=== PATIENT | female | born 1985 | race African-American/Black ===

== ENCOUNTER 2017-05-23 22:32 | Inpatient (IN) | payer BC ==
[2017-05-23] MEDS ORDERED: METHYLERGONOVINE 0.2 MG INJ IM (23:00)
[2017-05-23] MEDS ORDERED: MISOPROSTOL 200 MCG TAB PR (23:00)
[2017-05-23] MEDS ORDERED: OXYTOCIN 30 UNITS/LR 500 ML IV ×3 (23:00)
[2017-05-23] MEDS ORDERED: CARBOPROST 250 MCG INJ IM (23:00)
[2017-05-23] MEDS ORDERED: LIDOCAINE 1% (MPF) 30 ML INJ INJ (23:00)
[2017-05-23] MEDS ORDERED: IBUPROFEN 600 MG TAB PO (23:00)
[2017-05-24] MEDS: LACTATED RINGER'S 1,000 ML IV ×4 (00:02→22:41)
[2017-05-24 00:36] LABS: ADD MAN DIFF? NO
[2017-05-24 00:39] LABS: WHITE BLOOD COUNT 7.6 10^3/ul (4.8-10.8)
[2017-05-24 00:39] LABS: BASOPHILS % 0.1 % (0.0-2.0); EOSINOPHILS % 0.5 % (0.0-7.0); HEMATOCRIT 35.3 % (37.0-47.0); HEMOGLOBIN 12.2 g/dl (12.0-16.0); LYMPHOCYTES # 1.5 10^3/ul (0.8-2.9); LYMPHOCYTES % 20.4 % (15.0-51.0); MEAN CORPUSCULAR HEMOGLOBIN 27.8 pg (29.0-33.0); MEAN CORPUSCULAR HGB CONC 34.6 g/dl (32.0-37.0); MEAN CORPUSCULAR VOLUME 80.4 fl (82.0-101.0); MEAN PLATELET VOLUME 11.8 fl (7.4-10.4); MONOCYTE # 0.5 10^3/ul (0.3-0.9); MONOCYTES % 6.1 % (0.0-11.0); NEUTROPHIL # 5.4 10^3/ul (1.6-7.5); NEUTROPHILS % 71.7 % (39.0-77.0); PLATELET COUNT 198 10^3/UL (140-415); RED BLOOD COUNT 4.39 10^6/ul (4.20-5.40); RED CELL DISTRIBUTION WIDTH 13.9 % (11.5-14.5)
[2017-05-24 00:58] LABS: INR 0.87; PROTIME 11.9 Sec (11.9-14.9); PT RATIO 0.9
[2017-05-24 00:59] LABS: PARTIAL THROMBOPLASTIN TIME 26.8 Sec (25.0-35.0)
[2017-05-24] MEDS: DINOPROSTONE 10 MG VAG SUPP VAG (01:39)
[2017-05-24 05:06] LABS: HEPATITIS B SURFACE ANTIGEN NEGATIVE (NEGATIVE)
[2017-05-24] MEDS: PRENATAL VITAMIN PO (08:59)
[2017-05-24] MEDS: MISOPROSTOL 25 MCG CAPSULE PO ×2 (15:19→21:31)
[2017-05-24 16:46] LABS: RAPID PLASMA REAGIN NONREACTIVE (NR)
[2017-05-25] MEDS: MISOPROSTOL 25 MCG CAPSULE PO ×3 (03:15→15:00)
[2017-05-25] MEDS: LACTATED RINGER'S 1,000 ML IV ×6 (06:47→23:38)
[2017-05-25] MEDS: PRENATAL VITAMIN PO (09:20)
[2017-05-25] MEDS: BUTORPHANOL 2 MG INJ IV (15:59)
[2017-05-25] MEDS ORDERED: NALOXONE (0.4 MG/ML) INJ IV (17:00)
[2017-05-25] MEDS ORDERED: DIPHENHYDRAMINE 50 MG INJ IV (17:00)
[2017-05-25] MEDS ORDERED: ONDANSETRON 4 MG INJ IV (17:00)
[2017-05-25] MEDS ORDERED: FENTAnyl 2MCG/ML-ROPIV 0.2% 100 ML (17:03)
[2017-05-25 22:15] LABS: ADD MAN DIFF? NO
[2017-05-25 22:17] LABS: BASOPHILS % 0.2 % (0.0-2.0); EOSINOPHILS % 0.5 % (0.0-7.0); HEMATOCRIT 37.9 % (37.0-47.0); HEMOGLOBIN 12.6 g/dl (12.0-16.0); LYMPHOCYTES # 1.5 10^3/ul (0.8-2.9); LYMPHOCYTES % 16.6 % (15.0-51.0); MEAN CORPUSCULAR HEMOGLOBIN 27.3 pg (29.0-33.0); MEAN CORPUSCULAR HGB CONC 33.2 g/dl (32.0-37.0); MEAN PLATELET VOLUME 11.5 fl (7.4-10.4); MONOCYTE # 0.6 10^3/ul (0.3-0.9); MONOCYTES % 7.1 % (0.0-11.0); NEUTROPHIL # 6.6 10^3/ul (1.6-7.5); NEUTROPHILS % 74.5 % (39.0-77.0); PLATELET COUNT 145 10^3/UL (140-415); RED BLOOD COUNT 4.62 10^6/ul (4.20-5.40); RED CELL DISTRIBUTION WIDTH 14.2 % (11.5-14.5)
[2017-05-25 22:17] LABS: WHITE BLOOD COUNT 8.9 10^3/ul (4.8-10.8)
[2017-05-25 22:46] LABS: PROTIME 12.2 Sec (11.9-14.9)
[2017-05-25 22:47] LABS: PARTIAL THROMBOPLASTIN TIME 24.7 Sec (25.0-35.0)
[2017-05-25 22:49] LABS: ADD UMIC YES; ALANINE AMINOTRANSFERASE 36 IU/L (13-69); ALBUMIN 3.6 g/dl (3.3-4.9); ALBUMIN/GLOBULIN RATIO 1.12; ALKALINE PHOSPHATASE 130 IU/L (42-121); ANION GAP 11 (8-16); ASPARTATE AMINO TRANSFERASE 30 IU/L (15-46); BILIRUBIN,INDIRECT 0.2 mg/dl (0-1.1); BILIRUBIN,TOTAL 0.2 mg/dl (0.2-1.3); BLOOD UREA NITROGEN 3 mg/dl (7-20); CALCIUM 9.6 mg/dl (8.4-10.2); CARBON DIOXIDE 22 mmol/L (21-31); CHLORIDE 109 mmol/L (97-110); CREATININE 0.57 mg/dl (0.44-1.00); GLUCOSE 77 mg/dl (70-220); POTASSIUM 3.7 mmol/L (3.5-5.1); SODIUM 138 mmol/L (135-144); TOTAL PROTEIN 6.8 g/dl (6.1-8.1); UR ASCORBIC ACID NEGATIVE (NEGATIVE); UR BILIRUBIN (Dip) NEGATIVE (NEGATIVE); UR BLOOD (Dip) 1+ mg/dL (NEGATIVE); UR CLARITY CLEAR (CLEAR); UR COLOR STRAW (YELLOW); UR GLUCOSE (Dip) NEGATIVE (NEGATIVE); UR KETONES (Dip) NEGATIVE (NEGATIVE); UR LEUKOCYTE ESTERASE (Dip) NEGATIVE Leu/ul (NEGATIVE); UR NITRITE (Dip) NEGATIVE (NEGATIVE); UR RBC 0 /HPF (0-5); UR SPECIFIC GRAVITY (Dip) 1.003 (1.003-1.030); UR TOTAL PROTEIN (Dip) NEGATIVE (NEGATIVE); UR UROBILINOGEN (Dip) NEGATIVE (NEGATIVE); UR WBC 0 /HPF (0-5)
[2017-05-25] MEDS: FENTAnyl 2MCG/ML-ROPIV 0.2% 100 ML BAG EPI (23:34)
[2017-05-26] MEDS: OXYTOCIN 30 UNITS/LR 500 ML IV ×2 (01:39→04:43)
[2017-05-26] MEDS ORDERED: ZOLPIDEM 5 MG TAB PO (04:30)
[2017-05-26] MEDS ORDERED: ACETAMINOPHEN 325 MG TAB PO (04:30)
[2017-05-26] MEDS ORDERED: DIPHENHYDRAMINE 25 MG CAP PO (04:30)
[2017-05-26] MEDS ORDERED: HYDROCODONE/APAP (5/325) TAB PO (04:30)
[2017-05-26] MEDS ORDERED: CARBOPROST 250 MCG INJ IM (04:30)
[2017-05-26] MEDS ORDERED: ONDANSETRON 4 MG INJ IV (04:30)
[2017-05-26] MEDS: MISOPROSTOL 200 MCG TAB PR (04:45)
[2017-05-26 05:31] LABS: HEMATOCRIT 35.1 % (37.0-47.0); HEMOGLOBIN 11.8 g/dl (12.0-16.0)
[2017-05-26] MEDS: LANOLIN 7 GM TUBE TOP (06:39)
[2017-05-26] MEDS: IBUPROFEN 600 MG TAB PO ×3 (06:39→17:45)
[2017-05-26] MEDS: WITCH HAZEL/GLYCERIN PAD PR (06:40)
[2017-05-27] MEDS: IBUPROFEN 600 MG TAB PO ×5 (00:16→23:45)
[2017-05-27 11:17] LABS: ADD MAN DIFF? NO
[2017-05-27 11:25] LABS: WHITE BLOOD COUNT 8.1 10^3/ul (4.8-10.8)
[2017-05-27 11:25] LABS: BASOPHILS % 0.4 % (0.0-2.0); EOSINOPHILS # 0.2 10^3/ul (0.0-0.5); EOSINOPHILS % 2.6 % (0.0-7.0); HEMOGLOBIN 10.8 g/dl (12.0-16.0); LYMPHOCYTES % 24.8 % (15.0-51.0); MEAN CORPUSCULAR HEMOGLOBIN 27.7 pg (29.0-33.0); MEAN CORPUSCULAR HGB CONC 33.8 g/dl (32.0-37.0); MEAN CORPUSCULAR VOLUME 82.1 fl (82.0-101.0); MEAN PLATELET VOLUME 11.3 fl (7.4-10.4); MONOCYTE # 0.6 10^3/ul (0.3-0.9); MONOCYTES % 7.6 % (0.0-11.0); NEUTROPHIL # 5.1 10^3/ul (1.6-7.5); NEUTROPHILS % 63.5 % (39.0-77.0); PLATELET COUNT 196 10^3/UL (140-415); RED CELL DISTRIBUTION WIDTH 14.1 % (11.5-14.5)
[2017-05-27] MEDS: WITCH HAZEL/GLYCERIN PAD PR (17:57)
[2017-05-28] MEDS: IBUPROFEN 600 MG TAB PO ×2 (05:45→12:00)
[2017-05-28] MEDS: DIPHTH/TET/ACEL PERTUSS (ADULT) 0.5 ML VIAL IM* (08:56)
[2017-05-28] MEDS: VARICELLA VACCINE LIVE/PF 1,350 UNIT/0.5 ML ML SC* (08:57)
[2017-05-28] MEDS: MEASLES,MUMPS,RUBELLA VACCINE INJ SC* (08:57)
== END 2017-05-28 14:05 | disposition home or self-care (01) | DRG 775 ==
LOC: L-D 22:32 → PP1 05-26 06:22 → L-D 05-24 21:12
PROVIDERS: Obstetrics & Gynecology Obstetrics
PROC: 3E0P7VZ Introduction of Hormone into Female Reproductive, Via Natural or Artificial Opening (ICD-10-PCS; 2017-05-24)
PROC: 10E0XZZ Delivery of Products of Conception, External Approach (ICD-10-PCS; principal; 2017-05-26)
PROC: 0HQ9XZZ Repair Perineum Skin, External Approach (ICD-10-PCS; 2017-05-26)
DX: O70.0 First degree perineal laceration during delivery (principal); D64.9 Anemia, unspecified; O99.02 Anemia complicating childbirth; Z37.0 Single live birth; Z3A.39 39 weeks gestation of pregnancy
CPT/HCPCS: 62319; 80053; 81001; 85014; 85018; 85025; 85610; 85730; 86592; 86850; 86900; 86901; 87340